=== PATIENT | male | born 1955 | race Caucasian/White ===

== ENCOUNTER 2018-05-01 00:43 | Inpatient (IN) ==
[2018-05-01] MEDS ORDERED: DUONEB (A & A) INH ONE ×2 (00:53→03:36)
[2018-05-01 01:29] LABS: BASO# 0.04 X1000 (0.0-0.2); BASO% 0.4 % (0.0-0.8); EOS% 4.7 % (0.0-10.0); HEMATOCRIT 46.2 % (42.0-52.0); HEMOGLOBIN 15.7 g/dL (14.0-18.0); LYMPH# 1.64 X1000 (1.2-3.4); LYMPH% 15.5 % (20.5-51.1); MCH 30.2 PG (27-31); MCV 88.8 FL (81-99); MONO# 0.96 X1000 (0.11-0.59); MPV 10.2 FL (7.4-10.4); NEUT# 7.47 X1000 (1.4-6.5); NEUT% 70.4 % (42.2-75.2); PLT 217 X1000 (130-400); RDW 12.8 % (11.5-14.5); WBC 10.61 X1000 (4.8-10.8)
[2018-05-01 01:51] LABS: ALLEN TEST YES; BE -1.6 mmoll (-3.0-3.0); BLOOD TYPE ARTERIAL; HCO3-(ACT) 23.6 mmoll (20.0-26.0); METHB 0.9 % (0.0-1.5); MODALITY CANNULA; O2(CT) 20.5 mL/dL (15.0-23.0); O2HB 94.5 % (95.0-99.0); PCO2(98.6) 33 mmHg (35-45); PO2(98.6) 83 mmHg (60-100); SAMPLE BLOOD; SAO2 96.9 % (95.0-100.0); THB 15.4 g/dL (11.5-17.4); pH(98.6) 7.43 (7.35-7.45)
[2018-05-01 01:53] LABS: AGAP 14; ALB/GLOB RATIO 1.9; ALKALINE PHOSPHATASE 98 U/L (32-122); BUN 12 mg/dL (8-22); CALCIUM 9.3 mg/dL (8.8-10.2); CHLORIDE 100 mmol/L (98-107); COSMO 277; ESTIMATED GFR > 60; GLUCOSE 102 mg/dL (70-104); GOT 21 U/L (10-34); GPT 28 U/L (10-44); POTASSIUM 4.4 mmol/L (3.5-5.1); SODIUM 139 mmol/L (136-145); TCO2 25 mmol/L (25-35); TOTAL BILIRUBIN 0.73 mg/dL (0.20-1.00); TOTAL PROTEIN 7.6 g/dL (6.3-8.3)
[2018-05-01] MEDS ORDERED: SOLU-MEDROL IV ONE (01:53)
--- NOTE | 2018-05-01 03:54 | PROVIDER DOCUMENTATION ---
This chart was entered by Zuleyma Tirado Scribe, acting as scribe for Malvin Paris MD. HPI-Respiratory General - General Chief Complaint: Shortness of Breath Stated Complaint: sob Time Seen by Provider: 05/01/18 00:53 Source: patient Allergies/Adverse Reactions: Patient Allergies Allergy/AdvReac Type Severity Reaction Status Date / Time No Known Allergies Allergy Verified 05/01/18 01:02 Home Medications: Home Medication List Medication Instructions Recorded Confirmed Last Taken Type Albuterol [Albuterol Neb] 2.5 mg INH Q4H PRN PRN 05/01/18 05/01/18 Unknown History - History of Present Illness-Resp Nature of Presenting Problem: Pt is 62/M presenting to ED w/ SOB. Pt has hx of COPD and came in at 88% o2 on RA. Pt sts that he has albuterol at home. Pt sts that he stopped smoking 2 weeks prior, he was previously a heavy smoker and says that he didn't stop until he could not breath well enough to smoke. Quality of Pain: reports: other Severity in ED: reports: moderate Onset/Duration: reports: just prior to arrival Timing: reports: still present Exposure: reports: unknown cause Cough Quality/Degree: reports: no cough Episode Frequency: chronic episodes Current Respiratory Medication Therapy: Initiated albuterol/atrovent inhale Modifying Factors: improves with: nothing Associated Symptoms: reports: shortness of breath, short of breath Similar Symptoms Previously?: Yes Recently seen or treated by another doctor?: No Review of Systems - Adult - REVIEW OF SYSTEMS - ADULT Constitutional: denies: chills Eyes: reports: no symptoms reported Ears, Nose, Mouth & Throat: reports: no symptoms reported Cardiovascular: reports: no symptoms reported. denies: chest pain, edema Respiratory: reports: shortness of breath, wheezing. denies: cough Gastrointestinal: reports: no symptoms reported Genitourinary: reports: no symptoms reported Musculoskeletal: reports: no symptoms reported Integumentary: reports: no symptoms reported Neurological: reports: no symptoms reported. denies: dizziness/vertigo, headache/migraines Psychiatric: reports: no symptoms reported Endocrine: reports: no symptoms reported Hematologic/Lymphatic: reports: no symptoms reported Allergic/Immunologic: reports: no symptoms reported All Other Systems: Reviewed and Negative Past History - Adult - PAST MEDICAL HISTORY-ADULT Review of Records: reports: Old Records Reviewed, Nursing Assessment Review, Medications Reviewed, Social history reviewed & non-contributory. - SOCIAL HISTORY Smoking: quit less than 1 year Substance Use: none/never Alcohol Use Frequency: never Living Situation: family Physical Exam-General - PHYSICAL EXAM-ADULT Initial Vital Signs Reviewed: Yes - CONSTITUTIONAL General Appearance: mild distress, anxious, other (pt is anxious and tripoding, strugging to get a breath) - EYES Eyes: PERRL/EOMI - HEAD, EARS, NOSE, MOUTH & THROAT HENMT: normocephalic/atraumatic, moist mucous membranes, normal ENT inspection, TMs normal - NECK Neck: non-tender, full range of motion, supple, normal inspection - RESPIRATORY Respiratory: chest non-tender, wheezing, other (tekepnic) - CARDIOVASCULAR Cardiovascular: tachycardia, other (heart tones are distant) - GASTROINTESTINAL (ABDOMEN) Abdominal Exam: normal bowel sounds, non tender, soft - LYMPHATIC Lymphatic: no adenopathy - MUSCULOSKELETAL Back Exam: normal inspection, no CVA tenderness, no vertebral tenderness Extremity: normal range of motion, non-tender, normal gait, normal inspection - SKIN Integumentary: normal color, normal turgor, warm/dry - NEUROLOGIC Neurologic: grossly normal - PSYCHIATRIC Psych/Mental Status: normal mood/affect, normal thought content, normal thought process, oriented x 3 Progress - PLAN OF CARE/RESULTS Progress/Plan/Lab Results: Vital Signs - 8 hr 05/01/18 00:51 05/01/18 00:53 05/01/18 01:00 Temperature 98.1 F Pulse Rate 123 H 125 H 110 H Respiratory Rate 31 H 28 H 22 Blood Pressure 154/92 O2 Sat by Pulse Oximetry 93 L 88 L 95 05/01/18 01:02 05/01/18 01:10 05/01/18 01:20 Temperature Pulse Rate 121 H 131 H 110 H Respiratory Rate 19 22 18 Blood Pressure 147/100 O2 Sat by Pulse Oximetry 94 L 93 L 97 05/01/18 01:30 05/01/18 01:33 05/01/18 01:40 Temperature Pulse Rate 122 H 119 H 126 H Respiratory Rate 26 H 22 21 Blood Pressure 134/101 O2 Sat by Pulse Oximetry 94 L 93 L 92 L 05/01/18 01:44 05/01/18 01:50 05/01/18 02:00 Temperature Pulse Rate 88 140 H 119 H Respiratory Rate 16 21 20 Blood Pressure O2 Sat by Pulse Oximetry 93 L 94 L 92 L 05/01/18 02:02 05/01/18 02:10 05/01/18 02:20 Temperature Pulse Rate 113 H 119 H 135 H Respiratory Rate 25 H 21 23 Blood Pressure 133/97 O2 Sat by Pulse Oximetry 93 L 90 L 92 L 05/01/18 02:30 05/01/18 02:32 05/01/18 02:40 Temperature Pulse Rate 126 H 133 H 124 H Respiratory Rate 25 H 16 16 Blood Pressure 138/95 O2 Sat by Pulse Oximetry 91 L 90 L 90 L 05/01/18 02:50 05/01/18 03:00 05/01/18 03:02 Temperature Pulse Rate 111 H 114 H 116 H Respiratory Rate 24 24 24 Blood Pressure 125/96 O2 Sat by Pulse Oximetry 93 L 91 L 93 L 05/01/18 03:10 05/01/18 03:20 05/01/18 03:30 Temperature Pulse Rate 126 H 123 H 121 H Respiratory Rate 18 15 21 Blood Pressure O2 Sat by Pulse Oximetry 91 L 92 L 91 L 05/01/18 03:32 Temperature Pulse Rate 117 H Respiratory Rate 16 Blood Pressure 150/120 O2 Sat by Pulse Oximetry 91 L Laboratory Results - last 24 hr 05/01/18 05/01/18 05/01/18 01:00 01:00 01:41 WBC 10.61 RBC 5.20 Hgb 15.7 Hct 46.2 MCV 88.8 MCH 30.2 MCHC 34.0 RDW Std Deviation 12.8 Plt Count 217 MPV 10.2 Immature Gran % (Auto) 0.0 Neut % (Auto) 70.4 Lymph % (Auto) 15.5 L Nance % (Auto) 9.0 Eos % (Auto) 4.7 Baso % (Auto) 0.4 Immature Gran # (Auto) 0.00 Neut # (Auto) 7.47 H Lymph # (Auto) 1.64 Nance # (Auto) 0.96 H Eos # (Auto) 0.50 Baso # (Auto) 0.04 Specimen Type ARTERIAL Sample Site R RADIAL pH 7.43 pCO2 33 L pO2 83 HCO3 23.6 Base Excess -1.6 Oxyhemoglobin 94.5 L ABG O2 Sat (Calculated) 20.5 ABG O2 Saturation 96.9 ABG Carboxyhemoglobin 1.60 ABG Methemoglobin 0.9 [place] Test YES A-a O2 Difference 104.0 Total Hemoglobin 15.4 Lactate 1.70 Liter Flow 3.0 Blood Gas Modality CANNULA FiO2 % 32.0 Sodium 139 Potassium 4.4 Chloride 100 Carbon Dioxide 25 Anion Gap 14 BUN 12 Creatinine 1.0 Estimated GFR/1.73 m2 > 60 BUN/Creatinine Ratio 12 Glucose 102 Calculated Osmolality 277 Calcium 9.3 Total Bilirubin 0.73 AST 21 ALT 28 Alkaline Phosphatase 98 Total Protein 7.6 Albumin 5.0 Globulin 2.6 Albumin/Globulin Ratio 1.9 Orders Category Date Time Status CHEST-PORTABLE [RAD] Stat Exams 05/01/18 01:16 Taken ABG [RESP] Routine Lab 05/01/18 01:41 Completed CBC WITH ELECTRONIC DIFF [HEME] Stat Lab 05/01/18 01:00 Completed COMPREHENSIVE METABOLIC PANEL [CHEM] Stat Lab 05/01/18 01:00 Completed Albuterol 2.5MG/Ipratrop 0.5MG [Duoneb (A & A)] Med 05/01/18 00:53 Discontinued 3 ml INH NOW ONE Albuterol 2.5MG/Ipratrop 0.5MG [Duoneb (A & A)] Med 05/01/18 03:36 Discontinued 3 ml INH NOW ONE Methylprednisolone Sod Succ [Solu-Medrol] Med 05/01/18 01:53 Discontinued 40 mg IV NOW ONE Aerosol Treatments Routine Ot 05/01/18 00:54 Completed Aerosol Treatments Routine Ot 05/01/18 03:36 Active Aerosol Treatments Stat Ot 05/01/18 00:54 Completed Aerosol Treatments Stat Ot 05/01/18 03:36 Active Result Diagrams: 05/01/18 01:00 05/01/18 01:00 - CONSULTS/PCP/HOSPITALIST Notification #1 *Consult/PCP/Hospitalist*: Dr Crump Time Discussed: 03:53 Consult Disposition: Admit Departure - Departure Date of Disposition Decision: 05/01/18 Time of Disposition Decision: 03:53 DIAGNOSIS: COPD (chronic obstructive pulmonary disease) Qualifiers: COPD type: COPD with acute exacerbation Qualified Code(s): J44.1 - Chronic obstructive pulmonary disease with (acute) exacerbation Disposition: ADMITTED INPATIENT 09 Certified Medical Emergency: Emergent Condition: Fair - Critical Care Note This patient required my direct & personal management of CC.: No Attestation - Physician/ MANE Attestation Patient care was provided by Advanced Practice Provider:: No The physician spent face to face time with patient:: Yes Advanced Practice Provider documentation review:: Supervising physician onsite and consulted in the evaluation and care of this patient. The physician did have a face to face encounter with the patient. This chart was documented by the indicated scribe, (Zuleyma Tirado, Adrianaibgeno) and accurately reflects the services I performed and decisions made by me, Malvin Paris MD, as attested by the provider's signature.
[2018-05-01] MEDS ORDERED: DUONEB (A & A) INH PRN (05:55)
[2018-05-01] MEDS: LEVAQUIN 250 MG/D5W 250 MG/50 ML IVPB IV SCH (06:08)
--- NOTE | 2018-05-01 06:25 | HISTORY AND PHYSICAL ---
CHIEF COMPLAINT: Shortness of breath. HISTORY OF PRESENT ILLNESS: Mr. Adarsh Briceno is an 62-year-old male who has a history of COPD, comes to the hospital because of progressive worsening of shortness of breath along with cough productive of greenish sputum. He also describes having chest pain, and also wheezing. The patient does have a significant smoking history. He has been smoking cigarettes at the age of 10, and smokes about 1 to 2 packs per day. The patient was seen and evaluated in the ER. He had a chest x-ray done which did not show any significant infiltrates, but increased vascular markings noted. The patient will now be admitted to the floor for further management. PAST MEDICAL HISTORY: Noted for COPD as well as nephrolithiasis. SOCIAL HISTORY: Smokes cigarettes. No alcohol or drug use. ALLERGIES: No known drug allergies. PAST SURGICAL HISTORY: Patient has had surgery for kidney stones, and also lithotripsy. MEDICATIONS INCLUDE: Albuterol inhaler as well as albuterol nebs. FAMILY HISTORY: Positive for cancer. REVIEW OF SYSTEMS: Constitutional: No fever. Central nervous system: Has headaches. Eyes: Has visual impairment. ENT: Has hearing impairment. Cardiovascular: Chest pain. Gastrointestinal: Has nausea. Genitourinary: No dysuria. Musculoskeletal: Has joint pains. Psychiatric: Has anxiety with depression. Skin: No skin lesions. Hematology: Has some rectal bleed. Endocrinology: No diabetes or thyroid disease. Allergy/immunology: No issues with sneezing, running nose, or watery eyes. PHYSICAL EXAMINATION: VITAL SIGNS ARE FOLLOWS: Temperature is 98.2 degrees, pulse 112, respiratory 16, blood pressure 143/80, oxygen saturation 94%. HEENT: Patient is atraumatic, normocephalic. He is anicteric. Extraocular movements intact. On oral exam, has whitish discoloration over the tongue. NECK: No lymphadenopathy or thyromegaly. CARDIOVASCULAR: S1, S2. RESPIRATORY: Has rhonchi noted in both lung faust. ABDOMEN: Soft, nontender. No masses felt. EXTREMITIES: Has trace edema in both lower extremities. CENTRAL NERVOUS SYSTEM: The patient is awake, alert, well oriented. No obvious focal deficits noted. LABORATORY DATA: WBC is 10.61, hematocrit is 46.2, with a platelet count of 217,000. ABG 7.43/30/80/96.9%. Sodium is 139, potassium 4.4, chloride is 100, bicarb 25, BUN is 12, creatinine is 1.0. IMAGING: X-ray of the chest did not show any acute infiltrate put increased vascular markings noted. ASSESSMENT AND PLAN: A 62-year-old male with a history of chronic obstructive pulmonary disease, presenting with cough, shortness of breath as well as wheezing. 1. Chronic obstructive pulmonary disease exacerbation. Will place patient on nebulized bronchodilators, steroids, as well as antibiotics. Send sputum for Gram stain and culture. Closely follow up on patient's respiratory status, including chest x-ray as well as arterial blood gases. 2. Tobacco use history. The patient understands the importance of quitting cigarette smoking. Will place patient on nicotine patch. 3. Deep vein thrombosis prophylaxis. Lovenox. 4. Gastrointestinal prophylaxis. Proton pump inhibitor. cc: Francisco Alberto MD
[2018-05-01] MEDS: PRILOSEC PO SCH (06:59)
--- NOTE | 2018-05-01 07:45 | Diag Imaging Result Doc PS360 ---
EXAM: CHEST-PORTABLE - 05/01/2018 HISTORY: copd TECHNIQUE: Portable chest COMPARISON: 04/26/2013 FINDINGS: Heart size is normal. There are apparent COPD changes. There is no consolidation, pleural effusion, or pneumothorax identified. IMPRESSION: COPD. No discrete acute changes. Electronically signed by Carl Roy 05/01/2018 7:43 AM
[2018-05-01] MEDS: DUONEB (A & A) INH SCH ×5 (08:06→23:20)
[2018-05-01] MEDS: NICODERM PATCH TD PRN (08:40)
[2018-05-01] MEDS: SOLU-MEDROL IV SCH ×2 (09:12→17:15)
[2018-05-01] MEDS: ZOLOFT PO SCH (11:17)
[2018-05-02] MEDS: SOLU-MEDROL IV SCH ×3 (01:14→19:12)
[2018-05-02] MEDS: DUONEB (A & A) INH SCH ×6 (03:31→23:00)
[2018-05-02 05:41] LABS: HEMOGLOBIN 14.9 g/dL (14.0-18.0); IMM GRAN# 0.02 X1000 (0.0-0.04); IMM GRAN% 0.2 % (0.0-0.5); LYMPH# 0.98 X1000 (1.2-3.4); LYMPH% 9.6 % (20.5-51.1); MCH 30.1 PG (27-31); MCHC 33.9 g/dL (33-37); MCV 88.9 FL (81-99); MONO# 0.29 X1000 (0.11-0.59); MONO% 2.9 % (1.7-9.3); MPV 10.1 FL (7.4-10.4); NEUT# 8.87 X1000 (1.4-6.5); NEUT% 87.3 % (42.2-75.2); PLT 230 X1000 (130-400); RBC 4.95 XMIL (4.7-6.1); RDW 12.6 % (11.5-14.5); WBC 10.16 X1000 (4.8-10.8)
[2018-05-02 05:56] LABS: AGAP 12; ALB/GLOB RATIO 1.9; ALBUMIN 4.5 g/dL (3.5-5.0); ALKALINE PHOSPHATASE 86 U/L (32-122); BUN 15 mg/dL (8-22); CALCIUM 9.6 mg/dL (8.8-10.2); CHLORIDE 103 mmol/L (98-107); COSMO 281; CREATININE 0.9 mg/dL (0.7-1.2); ESTIMATED GFR > 60; GLUCOSE 140 mg/dL (70-104); GOT 16 U/L (10-34); GPT 23 U/L (10-44); POTASSIUM 4.6 mmol/L (3.5-5.1); SODIUM 139 mmol/L (136-145); TCO2 24 mmol/L (25-35); TOTAL BILIRUBIN 0.56 mg/dL (0.20-1.00); TOTAL PROTEIN 6.9 g/dL (6.3-8.3)
[2018-05-02] MEDS: PRILOSEC PO SCH (06:01)
[2018-05-02 08:11] LABS: BANDS 2 % (0-1); LYMPHS 8 % (21-51); MONO 4 % (1-9); SEGS 86 % (42-75)
[2018-05-02] MEDS: ZOLOFT PO SCH (08:57)
[2018-05-02] MEDS: LOVENOX SUBQ SCH (08:58)
[2018-05-02] MEDS: LEVAQUIN 250 MG/D5W 250 MG/50 ML IVPB IV SCH (08:59)
--- NOTE | 2018-05-02 09:01 | EKG Report ---
Test Performed on : 05/01/2018 05:14:36 AM Test Reason : SOB Blood Pressure : / mmHG Vent. Rate : 105 BPM Atrial Rate : 105 BPM P-R Int : 142 ms QRS Dur : 078 ms QT Int : 336 ms P-R-T Axes : 058 010 049 degrees QTc Int : 444 ms Sinus tachycardia. Otherwise normal ECG No previous ECGs available Unconfirmed Result
[2018-05-02] MEDS: NICODERM PATCH TD PRN (12:12)
--- NOTE | 2018-05-02 15:36 | ECHO REPORT ---
ORDER DATE: 05/01/2018 ECHOCARDIOGRAPHIC MEASUREMENTS: 1. Interventricular septum 1.0, left ventricular posterior wall 1.0, diastolic diameter 3.2, left atrium 3.4, aorta 3.2 . 2. Aortic valve leaflets are mildly sclerosed, trileaflet opening normally. Pulmonic valve was normal. Mitral valve was normal. Tricuspid valve was normal. 3. Normal left ventricular cavity size. Estimated ejection fraction of 65%. There is mild diastolic dysfunction. There is trace mitral regurgitation. Mild tricuspid regurgitation. Peak velocity across the tricuspid valve was 2.5 m/sec. Pulmonary artery systolic pressure of 35 mmHg. 4. There is no pericardial effusion or obvious intracardiac mass or thrombus seen. cc: MD Maureen Guthrie MD
--- NOTE | 2018-05-02 18:30 | Diag Imaging Result Doc PS360 ---
EXAM: CHEST-2 VIEWS INDICATION: dyspnea TECHNIQUE: 2 views COMPARISON: 05/01/2018 FINDINGS: The lungs appear hyperinflated, stable. The lungs are essentially clear, otherwise. No airspace consolidations are identified by plain radiograph. The cardiac silhouette is unremarkable. IMPRESSION: Stable chest with no definite acute pathology by plain radiograph. Electronically signed by Roldan Andres 05/02/2018 6:28 PM
--- NOTE | 2018-05-02 20:43 | PROGRESS NOTE ---
DATE: 05/02/2018 SUBJECTIVE: The patient states that he still feels short of breath. He does state that he feels a little anxious as well. OBJECTIVE: Vital Signs: Temperature 98.1 degrees, blood pressure 126/77, heart rate 101, respirations 22, O2 saturation 96% on 3 L nasal cannula. General: This is a chronically ill- appearing elderly male lying in bed in no acute distress. Heart: S1, S2 normal , tachycardic. Lungs: Mild expiratory wheezes bilaterally. Abdomen: Positive bowel sounds. Soft, nontender, nondistended. Extremities: No edema, no cyanosis. Neuro: The patient is alert and oriented x3. LABS: White blood cell count 10, hemoglobin 14, hematocrit 44, platelets 230, 000, sodium 139, potassium 4.6, chloride 103, CO2 24, BUN 15, creatinine 0.9, glucose 140. ASSESSMENT AND PLAN: 1. Acute chronic obstructive pulmonary disease exacerbation. Continue with IV steroids, antibiotics, bronchodilator therapy and supplemental oxygen. 2. Tobacco dependence. The patient has been counseled about smoking cessation. 3. Anxiety disorder. Aware. 4. Situational depression. The patient has been started on Zoloft. 5. Deep vein thrombosis prophylaxis. Continue on Lovenox. cc: Maureen Gudino MD MTDD
[2018-05-03] MEDS: SOLU-MEDROL IV SCH ×3 (03:25→18:03)
[2018-05-03] MEDS: DUONEB (A & A) INH SCH ×6 (03:44→22:59)
[2018-05-03] MEDS: PRILOSEC PO SCH (06:32)
[2018-05-03] MEDS ORDERED: ALBUTEROL NEB ONE (07:53)
--- NOTE | 2018-05-03 08:47 | PULMONOLOGY CONSULTATION ---
DATE: 05/02/2018 REQUESTING PHYSICIAN: Dr. Gudino. REASON FOR CONSULTATION: COPD exacerbation. HISTORY OF PRESENT ILLNESS: Mr. Briceno is a 62-year-old, white male who has been smoking since the age of 10 and has a greater than 100 pack-year history for tobacco. The patient was diagnosed with COPD approximately three and half years ago and has primarily used albuterol. He has had increasing periods of shortness of breath associated with panic attacks. He presented to the emergency room with an oxygen saturation of 88%, tachycardia, and hypertension. He has had some clinical improvement over the last 24 hours. PAST MEDICAL HISTORY: 1. COPD with ongoing tobacco use. 2. History of nephrolithiasis. 3. Anxiety disorder. 4. Depressive disorder. SOCIAL HISTORY: Ongoing tobacco use as per above. He denies alcohol or drug use. FAMILY HISTORY: Notable for a father who with lung cancer and a mother who from metastatic melanoma. REVIEW OF SYSTEMS: Review of systems is primarily noted for panic attacks, increasing shortness of breath on exertion. PHYSICAL EXAMINATION: General: Reveals a well-developed, well-nourished, white male in no distress. Vital Signs: Blood pressure 139/79, heart rate 103, respiratory rate 16, oxygen saturation 97% on 3 L. HEENT: Pupils are equal and reactive. Oropharynx is clear. Neck: Supple. Chest: Reveals prolonged expiratory phase with faint wheezing. Cardiac Examination: S1- S2. Abdomen: Soft and without hepatosplenomegaly. Extremities: Without edema. Neurologic: Cranial nerves 2-12 are grossly intact. LABORATORIES: Chest x-ray reveals normal LV function with no evidence of pulmonary hypertension. Arterial blood gas reveals a pH of 7.43, pCO2 of 38, PO2 of 83. White blood count 10.16, hemoglobin 14.9, platelet count 230,000. Sodium 139, potassium 4.6, chloride 103, bicarbonate 24, BUN 15, creatinine 0.9. IMPRESSION: A 62-year-old with clinical examination consistent with severe chronic obstructive pulmonary disease, mild chronic obstructive pulmonary disease exacerbation, component of anxiety/panic disorder contributing to his respiratory difficulties. RECOMMENDATIONS: 1. Consider long-acting inhaled corticosteroid/beta agonist such as Advair, Symbicort, Dulera, or other combination at the time of discharge. 2. Smoking cessation has strongly been recommended. 3. Agree with current steroid and antibiotic regimen but would rapidly taper his steroids. 4. We will obtain pulmonary function studies tomorrow. cc: Alejandro Conteh MD
[2018-05-03 08:58] LABS: HEMATOCRIT 45.8 % (42.0-52.0); HEMOGLOBIN 15.1 g/dL (14.0-18.0); MCH 29.8 PG (27-31); MCV 90.5 FL (81-99); MPV 10.3 FL (7.4-10.4); RBC 5.06 XMIL (4.7-6.1); RDW 12.9 % (11.5-14.5); WBC 16.21 X1000 (4.8-10.8)
[2018-05-03] MEDS: LEVAQUIN 250 MG/D5W 250 MG/50 ML IVPB IV SCH (09:12)
[2018-05-03] MEDS: LOVENOX SUBQ SCH (09:12)
[2018-05-03] MEDS: ZOLOFT PO SCH (09:12)
[2018-05-03 09:13] LABS: AGAP 13; BUN 20 mg/dL (8-22); CALCIUM 9.6 mg/dL (8.8-10.2); CHLORIDE 101 mmol/L (98-107); COSMO 284; CREATININE 0.9 mg/dL (0.7-1.2); ESTIMATED GFR > 60; GLUCOSE 131 mg/dL (70-104); POTASSIUM 4.8 mmol/L (3.5-5.1); SODIUM 140 mmol/L (136-145); TCO2 26 mmol/L (25-35)
[2018-05-03] MEDS: NICODERM PATCH TD PRN (11:51)
--- NOTE | 2018-05-03 17:30 | PROGRESS NOTE ---
DATE: 05/03/2018 SUBJECTIVE: The patient is resting comfortably. Not in any obvious distress. OBJECTIVE: Vital signs: Temperature 98.1 degrees, pulse 103, respiratory rate 19, blood pressure 152/80, oxygen saturation is 98%. HEENT: Atraumatic, normocephalic. Cardiovascular: S1, S2. Respiratory system: Evidence of good air entry bilaterally. Abdomen: Soft, nontender. No masses felt. Extremities: No evidence of edema. Central nervous system: No obvious focal deficit noted. LABORATORY DATA: WBC is 16.21, hematocrit is 45.8, with a platelet count of 271,000. Sodium is 140, potassium 4.8, chloride is 101, bicarb 26, BUN is 20, creatinine 0.9. IMAGING STUDIES: X-ray of chest done 05/02/2018, no acute infiltrate noted. ASSESSMENT AND PLAN: 1. Chronic obstructive pulmonary disease exacerbation. Maintain the patient on nebulized bronchodilators, steroids, and antibiotics as well as oxygen supplementation. 2. Nicotine dependence. The patient understands the need to quit cigarette smoking. 3. Depression. Continue sertraline. 4. Deep vein thrombosis prophylaxis. Lovenox. cc: Francisco Alberto MD
[2018-05-04] MEDS: SOLU-MEDROL IV SCH ×3 (01:55→18:26)
[2018-05-04] MEDS: DUONEB (A & A) INH SCH ×6 (03:26→23:15)
[2018-05-04] MEDS: LEVAQUIN 250 MG/D5W 250 MG/50 ML IVPB IV SCH (09:15)
[2018-05-04] MEDS: ZOLOFT PO SCH (09:15)
[2018-05-04] MEDS: LOVENOX SUBQ SCH (09:17)
[2018-05-04] MEDS: NICODERM PATCH TD PRN (12:09)
[2018-05-04] MEDS ORDERED: LEVAQUIN 250 MG/D5W 250 MG/50 ML IVPB IV ONE (13:30)
[2018-05-04] MEDS ORDERED: PNEUMOVAX 23 IM ONE (14:49)
--- NOTE | 2018-05-04 15:09 | PROGRESS NOTE ---
DATE: 05/04/2018 SUBJECTIVE: Patient is resting comfortably in bed. OBJECTIVE: Vital signs: Temperature 97.4 degrees, pulse 109, respirations 24, blood pressure is 154/88, oxygen saturation 96%. HEENT: Atraumatic, normocephalic. Cardiovascular system: S1, S2. Respiratory system: Has evidence of good air entry bilaterally. Abdomen: Soft. Nontender. No masses felt. Extremities: No evidence of edema. Central nervous system: No obvious focal deficits noted. ASSESSMENT AND PLAN: 1. Chronic obstructive pulmonary disease exacerbation. Continue nebulized bronchodilators steroids as well as antibiotics and oxygen supplementation. Of note, the patient's sputum culture is currently growing Pseudomonas aeruginosa and that is sensitive to Levaquin. 2. Nicotine dependence. Patient understands the importance of tobacco cessation. 3. Depression. Continue sertraline. 4. Deep vein thrombosis prophylaxis. Lovenox. cc: Francisco Alberto MD
[2018-05-04] MEDS: PRILOSEC PO SCH (22:18)
--- NOTE | 2018-05-04 22:40 | PULMONOLOGY PROGRESS NOTE ---
DATE: 05/04/2018 SUBJECTIVE: Patient reports he is doing well. He does have periods of anxiety/panic, but otherwise is without specific complaints. OBJECTIVE: Vital Signs: The patient has been afebrile for the last 24 hours. Blood pressure 154/88, heart rate 109, respiratory rate 16, oxygen saturation 92% on nasal cannula. HEENT: Pupils are equal and reactive. Oropharynx is clear. Neck: Supple. Chest: Reveals prolonged expiratory phase with occasional rhonchi. No significant wheezing. Cardiac: S1, S2. Abdomen: Soft. Extremities: Without edema. LABORATORIES: PFTs are reviewed. The patient has severe obstruction with an FEV 1 of 1.14 L or 36% of predicted. He also has significant hyperinflation with a total lung capacity of 7.8 L or 121% of predicted. He has marked increase in air trapping/residual volume at 214% of predicted. He has no change following bronchodilator. Microbiology reveals Pseudomonas aeruginosa on his cultures. IMPRESSION: A 62-year-old with 1. Severe chronic obstructive pulmonary disease. 2. Hypoxemic respiratory failure. 3. Chronic obstructive pulmonary disease exacerbation. 4. Anxiety disorder. 5. Tobacco use time of admission. RECOMMENDATIONS: 1. Recommend discharging patient on a long-acting anticholinergic such as Spiriva, along with long-acting beta agonist/inhaled corticosteroid combination such as Advair, Symbicort, and Dulera. 2. Continue short-acting bronchodilators at discharge. 3. Recommend 7 to 10 day course of a steroid and antibiotic taper. 4. Smoking cessation was strongly recommended. 5. The patient can be discharged 05/05/2018 from a pulmonary standpoint. cc: Alejandro Conteh MD
[2018-05-05] MEDS: SOLU-MEDROL IV SCH ×3 (01:25→17:41)
[2018-05-05] MEDS: DUONEB (A & A) INH SCH ×6 (03:45→23:30)
[2018-05-05] MEDS: PRILOSEC PO SCH (06:14)
[2018-05-05] MEDS: LOVENOX SUBQ SCH (09:17)
[2018-05-05] MEDS: ZOLOFT PO SCH (09:17)
[2018-05-05] MEDS: LEVAQUIN 500 MG/D5W 500 MG/100 ML IVPB IV SCH (09:18)
--- NOTE | 2018-05-05 13:09 | PROGRESS NOTE ---
DATE: 05/05/2018 SUBJECTIVE: The patient is awake and not in any obvious distress. OBJECTIVE: Vital signs: Temperature 97.5 degrees, pulse 100, respiratory rate is 18, blood pressure 149/88, oxygen saturation 94%. HEENT: Atraumatic, normocephalic. Cardiovascular: S1, S2. Respiratory: Has evidence of good entry bilaterally. Central nervous system: No obvious focal deficit noted. LABORATORY DATA: None. ASSESSMENT AND PLAN: 1. Chronic obstructive pulmonary disease exacerbation. Continue nebulized bronchodilators, steroids as well as antibiotics. 2. Nicotine dependence. The patient indicates a strong desire to quit smoking. 3. Depression. Continue sertraline. 4. Deep vein thrombosis prophylaxis. Lovenox. cc: Francisco Alberto MD
[2018-05-06] MEDS: SOLU-MEDROL IV SCH ×2 (02:16→09:09)
[2018-05-06] MEDS: DUONEB (A & A) INH SCH ×2 (03:35→07:55)
[2018-05-06] MEDS: PRILOSEC PO SCH (06:13)
[2018-05-06] MEDS: LEVAQUIN 500 MG/D5W 500 MG/100 ML IVPB IV SCH (08:49)
[2018-05-06] MEDS: ZOLOFT PO SCH (08:50)
[2018-05-06] MEDS: LOVENOX SUBQ SCH (08:50)
[2018-05-06 11:05] VITALS: BP 153/81
[2018-05-06] MEDS ORDERED: ADVAIR 250/50 DISKUS INH SCH (12:30)
[2018-05-06] MEDS ORDERED: DUONEB (A & A) INH SCH (12:30)
[2018-05-06] MEDS ORDERED: MEDROL DOSEPAK PO SCH (12:30)
[2018-05-06] MEDS ORDERED: MEDROL PO SCH (17:00)
[2018-05-07] MEDS ORDERED: LEVAQUIN PO SCH (09:00)
--- NOTE | 2018-05-07 10:57 | DISCHARGE SUMMARY ---
ADMISSION DATE: 05/01/2018 DISCHARGE DATE: 05/06/2018 PRINCIPAL DIAGNOSIS: Chronic obstructive pulmonary disease exacerbation. SECONDARY DIAGNOSES: 1. Tobacco use history. 2. History of nephrolithiasis. DISCHARGE MEDICATIONS: Discharge medications include the followin. Advair 250/50 one puff twice a day. 2. Combivent Respimat 1 puff every 6 hours. 3. Medrol Dosepak to be taken as directed 4. Levaquin 500 mg p.o. daily for the next 7 days. CONSULTATIONS DONE DURING THIS HOSPITAL STAY: Dr. Alejandro Conteh, Pulmonology. SPECIAL PROCEDURES DONE THIS HOSPITAL STAY: 1. A 2D echocardiogram on 05/01/2018. 2. Pulmonary function test on 05/04/2018. HOSPITAL COURSE: Mr. Adarsh Briceno is a 62-year-old male, who has a history of COPD and tobacco use. He was admitted to the hospital because of cough, shortness of breath, as well as wheezing, and was diagnosed as having COPD exacerbation. The patient was maintained on nebulized bronchodilators, steroids, as well as antibiotics. Hospital culture came back positive for Pseudomonas aeruginosa and this was sensitive to Levaquin. The patient did fairly well. He will be going home with home oxygen. PHYSICAL EXAMINATION: Vital Signs: During my evaluation today, his vital signs as follows: Temperature is 97.4 degrees, pulse 86, respirations 18, blood pressure 153/81, oxygen saturation 93%. HEENT: Atraumatic, normocephalic. Cardiovascular system: S1, S2. Respiratory system: Has evidence of good air entry bilaterally. Abdomen: Soft, nontender. No masses felt. Extremities: No evidence of edema. Central nervous system: No obvious focal deficit noted. PLAN: Discharge home today. 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 He will be going home with home oxygen. He has been advised to quit cigarette smoking and also to uses his inhalers as directed. He will also be going home on tapering dose of steroids. cc: Francisco Alberto MD
== END 2018-05-06 14:37 | disposition home or self-care (01) | DRG 190 ==
LOC: ED 00:43 → 3N 06:02 → SUATTDRO 06:02
PROVIDERS: ATTEND Internal Medicine
CPT/HCPCS: 71010; 71020; 71045; 71046; 80048; 80053; 82550; 82805; 84484; 85025; 85027; 85379; 87070; 87077; 87186; 87205; 89220; 90732; 93005; 93306; 94060; 94375; 94640; 94726; 94729; 94761; 96374; 96375; 99285; A9270; J1650; J1956; J2930